=== PATIENT | male | born 2000 | race Caucasian/White ===

== ENCOUNTER 2020-09-01 11:36 | Emergency (ER) | payer BC ==
[~2020-09-01] VITALS: Ht 182.9 cm; Wt 94.5 kg
[~2020-09-01 11:36] MED LIST: ACETAMINOPHEN W1 TA6 PO
[2020-09-01 12:00] VITALS: TEMP 98.2
[2020-09-01 15:02] VITALS: BP 116/72; PULSE 64
== END 2020-09-01 15:02 | disposition home or self-care (01) ==
LOC: COL.ER 11:36
DX: N50.811 Right testicular pain (principal); N50.812 Left testicular pain